=== PATIENT | male | born 1980 | race Caucasian/White ===

== ENCOUNTER 2017-11-25 10:44 | Emergency (ER) | payer OTHER ==
[~2017-11-25] VITALS: Ht 185.4 cm; Wt 99.8 kg
[2017-11-25] MEDS ORDERED: Baclofen10 MG PO (11:55)
== END 2017-11-25 12:02 | disposition home or self-care (01) ==
LOC: ER 10:44
DX: S01.01XA Laceration without foreign body of scalp, initial encounter (principal); W22.8XXA Striking against or struck by other objects, initial encounter
CPT/HCPCS: 12002; 99283

== ENCOUNTER 2021-06-08 19:26 | Emergency (ER) | payer OTHER ==
[~2021-06-08] VITALS: Ht 185.4 cm; Wt 99.8 kg
[~2021-06-08 19:26] MED LIST: Baclofen10 MG PO
[2021-06-10 07:11] LABS: HCV ANTIBODY <0.1 (0.0-0.9); HIV AB/P24 AG SCREEN Non Reactive (Non Reactive)
== END 2021-06-08 21:29 | disposition home or self-care (01) ==
LOC: ER 19:26
PROVIDERS: Physician Assistant
DX: Z77.21 Contact with and (suspected) exposure to potentially hazardous body fluids (principal)
CPT/HCPCS: 36415; 84460; 86317; 86803; 87389; 99283

== ENCOUNTER → 2024-05-02 | Outpatient (CLI) | payer OTHER ==
[2024-05-02 19:01] LABS: Creatinine, Urine Random 95.4 mg/dL (27.00-270.00); Microalb/Creat Ratio UR, Rand 14.57 mg/g (0.000-30.000); Microalbumin, Random Urine 13.9 mg/L (0.000-20.000)
== END | disposition home or self-care (01) ==
LOC: LAB SHORT 15:57 → LAB 15:57
PROVIDERS: Family Medicine
DX: I10 Essential (primary) hypertension (principal)
CPT/HCPCS: 82043; 82570